=== PATIENT | female | born 1975 | race American Indian/Alaskan Native ===

== ENCOUNTER 2018-11-07 18:59 | Emergency (ER) | payer MEDICAID ==
[2018-11-07] MEDS ORDERED: Famotidine 20 MG/2 ML SDV IVPUSH ONE (19:31)
[2018-11-07] MEDS ORDERED: Sodium Chloride 0.9% 10 ML Syringe FLUSH PRN (19:31)
[2018-11-07] MEDS ORDERED: Ondansetron 4 MG/2 ML SDV IVPUSH ONE (19:31)
[2018-11-07] MEDS ORDERED: HYDROmorphone 0.5 MG/0.5 ML Syringe IVPUSH ONE (19:31)
--- NOTE | 2018-11-07 19:37 | EDM.PDOC ---
ED HPI GENERAL MEDICAL PROBLEM - General Chief Complaint: Abdominal Pain Stated Complaint: ABDOMINAL PAIN Time Seen by Provider: 11/07/18 19:21 Source of Information: Reports: Patient, RN Notes Reviewed - History of Present Illness INITIAL COMMENTS - FREE TEXT/NARRATIVE: 43 year old female with upper mid abd pain since early this past morning, onset about 12 hrs ago. It is burning with radiation to her back. She has had nausea, repetitive vomiting now having dry heaves. Not able to eat or drink much, eating makes her more sick. No chest pain or difficulty breathing. She does still have her appendix and GB. Last menstrual perior about 2 months ago. Left Upper Abdomen Pain Score (Numeric/FACES): 10 Left Middle Back Pain Score (Numeric/FACES): 8 - Related Data Allergies Allergy/AdvReac Type Severity Reaction Status Date / Time No Known Allergies Allergy Verified 11/07/18 19:18 Home Meds: Home Meds Ondansetron [Zofran ODT] 4 mg PO Q8HR PRN #7 tab.dis 11/07/18 [Rx] Past Medical History - Past Surgical History Female Surgical History: Reports: Tubal Ligation Social & Family History - Tobacco Use Smoking Status *Q: Current Every Day Smoker Years of Tobacco use: 15 Packs/Tins Daily: 0.5 - Caffeine Use Caffeine Use: Reports: Coffee, Soda - Recreational Drug Use Recreational Drug Use: No ED ROS GENERAL - Review of Systems Review Of Systems: See Below Constitutional: Denies: Fever, Chills, Diaphoresis HEENT: Reports: No Symptoms Respiratory: Denies: Shortness of Breath, Pleuritic Chest Pain Cardiovascular: Denies: Chest Pain GI/Abdominal: Reports: Abdominal Pain, Decreased Appetite, Nausea, Vomiting. Denies: Diarrhea, Hematemesis, Hematochezia, Melena Musculoskeletal: Reports: Back Pain Skin: Reports: No Symptoms Neurological: Reports: No Symptoms ED EXAM, GI/ABD - Physical Exam Exam: See Below General Appearance: Alert, Moderate Distress Eyes: Bilateral: Normal Appearance Throat/Mouth: Normal Inspection, Normal Oropharynx Head: Atraumatic Neck: Supple, Full Range of Motion Respiratory/Chest: No Respiratory Distress, Lungs Clear, Normal Breath Sounds Cardiovascular: Bradycardia GI/Abdominal Exam: Tender (upper mid abd and to a lesser extent RUQ). No: Guarding, Rebound Back Exam: No: CVA Tenderness (L), CVA Tenderness (R) Neurological: Alert, Oriented, No Motor/Sensory Deficits Skin Exam: Warm, Dry, Normal Color Course - Vital Signs Last Recorded V/S: Last Vital Signs Temp 98.0 F 11/07/18 19:21 Pulse 50 L 11/07/18 19:21 Resp 20 11/07/18 19:21 BP 110/78 11/07/18 19:21 Pulse Ox 99 11/07/18 19:21 - Orders/Labs/Meds Orders: Active Orders 24 hr Category Date Time Status Peripheral IV Care [RC] . DIRECTED Care 11/07/18 19:32 Active Abdomen 2V AP Flat Upright [CR] Stat Exams 11/07/18 20:21 Taken Peripheral IV Insertion Adult [OM.PC] Stat Oth 11/07/18 19:31 Ordered Labs: Laboratory Tests 11/07/18 11/07/18 11/07/18 Range/Units 19:45 19:45 19:45 WBC 7.26 (3.98-10.04) K/mm3 RBC 4.17 (3.98-5.22) M/mm3 Hgb 12.5 (11.2-15.7) gm/L Hct 38.0 (34.1-44.9) % MCV 91.1 (79.4-94.8) fl MCH 30.0 (25.6-32.2) pg MCHC 32.9 (32.2-35.5) g/dl RDW Std Deviation 42.7 (36.4-46.3) fL Plt Count 235 (182-369) K/mm3 MPV 9.7 (9.4-12.3) fl Neut % (Auto) 68.8 (34.0-71.1) % Lymph % (Auto) 21.2 (19.3-51.7) % [place] % (Auto) 8.3 (4.7-12.5) % Eos % (Auto) 1.2 (0.7-5.8) Baso % (Auto) 0.4 (0.1-1.2) % Neut # (Auto) 4.99 (1.56-6.13) K/mm3 Lymph # (Auto) 1.54 (1.18-3.74) K/mm3 [place] # (Auto) 0.60 H (0.24-0.36) K/mm3 Eos # (Auto) 0.09 (0.04-0.36) K/mm3 Baso # (Auto) 0.03 (0.01-0.08) K/mm3 Sodium 141 (136-145) mEq/L Potassium 3.7 (3.5-5.1) mEq/L Chloride 106 (98-107) mEq/L Carbon Dioxide 25 (21-32) mEq/L Anion Gap 13.7 (5-15) BUN 15 (7-18) mg/dL Creatinine 0.6 (0.55-1.02) mg/dL Est Cr Clr Drug Dosing 85.05 mL/min Estimated GFR (MDRD) > 60 (>60) mL/min BUN/Creatinine Ratio 25.0 H (14-18) Glucose 94 (74-106) mg/dL Calcium 8.7 (8.5-10.1) mg/dL Total Bilirubin 0.4 (0.2-1.0) mg/dL AST 15 (15-37) U/L ALT 24 (14-59) U/L Alkaline Phosphatase 76 (46-116) U/L Total Protein 6.8 (6.4-8.2) g/dl Albumin 3.7 (3.4-5.0) g/dl Globulin 3.1 gm/dL Albumin/Globulin Ratio 1.2 (1-2) Lipase 140 (73-393) U/L HCG, Qual Negative (NEGATIVE) Meds: Medications Discontinued Medications Generic Name Dose Route Start Last Admin Trade Name Freq PRN Reason Stop Dose Admin Famotidine 20 mg 11/07/18 19:31 11/07/18 19:55 Pepcid IVPUSH 11/07/18 19:32 20 mg ONETIME ONE Administration Hydromorphone HCl 0.5 mg 11/07/18 19:31 11/07/18 19:55 Dilaudid IVPUSH 11/07/18 19:32 0.5 mg ONETIME ONE Administration Sodium Chloride 1,000 mls @ 999 mls/hr 11/07/18 19:45 11/07/18 19:54 Normal Saline IV 999 mls/hr ONETIME NANCY Administration Metoclopramide HCl 5 mg 11/07/18 20:20 11/07/18 20:41 Reglan IVPUSH 11/07/18 20:21 5 mg ONETIME ONE Administration Ondansetron HCl 4 mg 11/07/18 19:31 11/07/18 19:54 Zofran IVPUSH 11/07/18 19:32 4 mg ONETIME ONE Administration Sodium Chloride 10 ml 11/07/18 19:31 11/07/18 19:55 Saline Flush FLUSH 10 ml ASDIRECTED PRN Administration Keep Vein Open - Re-Assessments/Exams Free Text/Narrative Re-Assessment/Exam: 11/08/18 01:55 Labs came back relatively normal flat and upright of abdomen was okay. She feels much better after IV meds and fluid. Discharge instructions as documented. Departure - Departure Time of Disposition: 21:37 Disposition: Home, Self-Care 01 Condition: Fair Clinical Impression: Abdominal pain Qualifiers: Abdominal location: upper abdomen, unspecified Qualified Code(s): R10.10 - Upper abdominal pain, unspecified Vomiting Qualifiers: Vomiting type: unspecified Vomiting Intractability: non-intractable Nausea presence: with nausea Qualified Code(s): R11.2 - Nausea with vomiting, unspecified - Discharge Information Prescriptions: Ondansetron [Zofran ODT] 4 mg PO Q8HR PRN #7 tab.dis PRN Reason: Nausea/Vomiting Instructions: Abdominal Pain, Adult, [id number], Vomiting, Adult Referrals: PCP,Not In Area [Primary Care Provider] - Forms: ED Department Discharge Additional Instructions: Clear liquids only until tomorrow afternoon, than very careful bland diet as tolerated, Zofran if needed for further nausea or vomiting, start pepcid over- the-counter, the generic is famotidine and take that 20 mg twice daily for the next week, thereafter as needed. That will reduce acid production from your stomach. Follow-up clinic if not getting back to normal within 1-2 days as expected, return to ED as needed if symptoms worsening in any way. - My Orders Last 24 Hours: My Active Orders 11/07/18 19:31 Peripheral IV Insertion Adult [OM.PC] Stat 11/07/18 19:32 Peripheral IV Care [RC] . DIRECTED 11/07/18 20:21 Abdomen 2V AP Flat Upright [CR] Stat - Assessment/Plan Last 24 Hours: My Active Orders 11/07/18 19:31 Peripheral IV Insertion Adult [OM.PC] Stat 11/07/18 19:32 Peripheral IV Care [RC] . DIRECTED 11/07/18 20:21 Abdomen 2V AP Flat Upright [CR] Stat
[2018-11-07] MEDS ORDERED: Sodium Chloride 0.9% 1,000 ML IV SCH (19:45)
[2018-11-07] MEDS ORDERED: Metoclopramide 10 MG/2 ML SDV IVPUSH ONE (20:20)
--- NOTE | 2018-11-08 10:16 | CR ---
Abdomen: Supine and upright views of the abdomen were obtained. Comparison: No prior abdominal x-ray. Bowel gas pattern appears within normal limits. Calcifications are identified within the pelvis which are felt compatible with phleboliths. No free air is seen. Bony structures are unremarkable. Impression: 1. Incidental findings. Nothing acute is appreciated. Diagnostic code #2
== END 2018-11-07 21:51 | disposition home or self-care (01) ==
LOC: JD.ED 18:59
DX: R11.2 Nausea with vomiting, unspecified (principal); R10.10 Upper abdominal pain, unspecified; F17.210 Nicotine dependence, cigarettes, uncomplicated
CPT/HCPCS: 36415; 74019; 80053; 83690; 84703; 85025; 96361; 96374; 96375; 99284; J1170; J2405; J2765; J3490; J7040

== ENCOUNTER 2024-09-28 08:59 | Emergency (ER) | payer MEDICAID ==
[2024-09-28] MEDS: Ondansetron 4 MG/2 ML SDV IVPUSH ONE (10:28)
[2024-09-28] MEDS: Sodium Chloride 0.9% 1,000 ML IV ONE (10:28)
[2024-09-28] MEDS: Ketorolac 30 MG/ML SDV IVPUSH ONE (10:28)
[2024-09-28] MEDS: Acetaminophen 325 MG Tab PO ONE (10:29)
[2024-09-28 10:30] LABS: BASOPHILS PERCENT AUTO 0.4 % (0.0-1.0); EOSINOPHILS PERCENT AUTO 0.2 % (0.0-6.0); HEMATOCRIT 45.5 % (37.0-47.0); HEMOGLOBIN 15.6 gm/dl (12.0-16.0); IMMATURE GRAN ABSOLUTE AUTO 0.04 K/mm3 (0.00-0.05); IMMATURE GRAN PERCENT AUTO 0.4 % (0.0-0.4); LYMPHOCYTES ABSOLUTE AUTO 1.4 K/mm3 (1.0-4.8); LYMPHOCYTES PERCENT AUTO 12.6 % (24.0-44.0); MEAN CORPUSCULAR HEMOGLOBIN 30.6 pg (28.0-32.0); MEAN CORPUSCULAR HGB CONC 34.3 g/dl (32.0-36.0); MEAN CORPUSCULAR VOLUME 89.2 fl (83.0-99.0); MEAN PLATELET VOLUME 9.6 fl (9.4-12.3); MONOCYTES ABSOLUTE AUTO 0.7 K/mm3 (0.0-0.8); MONOCYTES PERCENT AUTO 6.4 % (0.0-8.0); NEUTROPHILS ABSOLUTE AUTO 8.6 K/mm3 (1.8-7.7); PLATELET COUNT,PLT 256 K/mm3 (150-400)
[2024-09-28 10:37] LABS: INR 0.97; PROTHROMBIN TIME 10.3 SECONDS (9.7-12.0)
[2024-09-28] MEDS: Iopamidol 612 MG/ML 100 ML Bottle IVPUSH ONE (10:42)
[2024-09-28 10:46] LABS: ALBUMIN 4.1 g/dl (3.4-5.0); ANION GAP 11.2 (5-15); BILIRUBIN TOTAL 0.8 mg/dL (0.2-1.0); BUN/CREATININE RATIO 11.3 (14-18); CALCIUM 9.5 mg/dL (8.5-10.1); CREATININE 0.8 mg/dL (0.55-1.02); EST CRCL DRUG DOSING (CG) 60.43 mL/min; POTASSIUM,K 4.2 mEq/L (3.5-5.1); PROTEIN TOTAL,TP 8.1 g/dl (6.4-8.2)
[2024-09-28 11:53] LABS: BARBITURATE SCREEN,URINE NEGATIVE (CUTOFF=200); BENZODIAZEPINES SCREEN,URINE NEGATIVE (CUTOFF=150); BUPRENORPHINE SCREEN,URINE NEGATIVE (CUTOFF=10); METHADONE SCREEN, URINE NEGATIVE (CUTOFF=200); METHAMPHETAMINES SCREEN, URINE NEGATIVE (CUTOFF=500); OXYCODONE SCREEN,URINE NEGATIVE (CUT0FF=100); THC SCREEN,URINE 20 NG/ML PRESUMPTIVE POSITIVE (CUTOFF=50)
[2024-09-28 11:54] LABS: AMPHETAMINES SCREEN, URINE NEGATIVE (CUTOFF=500)
[2024-09-28 12:22] LABS: TSH 0.866 uIU/mL (0.358-3.74)
[2024-09-28] MEDS: Sodium Chloride 0.9% 1,000 ML IV SCH (13:47)
[2024-09-28] MEDS: Piperacillin/Tazobactam 4.5 GM in Sodium Chloride 0.9% 100 ML IV ONE (13:47)
== END 2024-09-28 17:15 | disposition home or self-care (01) ==
LOC: JD.ED 08:59 → JD.MS 15:14 → UNDOADMIN 15:14 → JD.MS 16:21 → JD.ED 17:15
DX: K81.9 Cholecystitis, unspecified (principal); R00.1 Bradycardia, unspecified; F17.210 Nicotine dependence, cigarettes, uncomplicated
CPT/HCPCS: 36415; 74177; 76705; 80053; 80306; 82550; 83690; 83735; 84443; 85025; 85610; 93005; 96361; 96365; 96375; 99284; A9270; J1885; J2405; J2543; J7030; Q9967; 93010

== ENCOUNTER 2024-10-06 08:11 | Day surgery (SDC) | payer MEDICAID ==
[~2024-10-06 08:11] MED LIST: Sodium Chloride 0.9% 10 ML Syringe FLUSH PRN; Sodium Chloride 0.9% 10 ML Syringe FLUSH SCH
[2024-10-06] MEDS: Lactated Ringers 1,000 ML IV SCH (08:35)
[2024-10-06 09:24] LABS: ALBUMIN 3.5 g/dl (3.4-5.0); ANION GAP 15.1 (5-15); BILIRUBIN TOTAL 0.3 mg/dL (0.2-1.0); BUN/CREATININE RATIO 17.8 (14-18); CALCIUM 8.7 mg/dL (8.5-10.1); CREATININE 0.9 mg/dL (0.55-1.02); EST CRCL DRUG DOSING (CG) 53.71 mL/min; POTASSIUM,K 4.1 mEq/L (3.5-5.1)
[2024-10-06] MEDS ORDERED: propofoL 1,000 MG/100 ML 100 ML ONE (09:28)
[2024-10-06] MEDS ORDERED: fentaNYL 250 MCG/5 ML SDV ONE (09:32)
[2024-10-06] MEDS ORDERED: Midazolam 1 MG/ML 2 ML SDV ONE (09:32)
[2024-10-06] MEDS ORDERED: Ondansetron 4 MG/2 ML SDV ONE (09:33)
[2024-10-06] MEDS ORDERED: Dexamethasone 4 MG/ML 5 ML MDV ONE (09:33)
[2024-10-06] MEDS ORDERED: Lidocaine 1% 5 ML VIAL ONE (09:33)
[2024-10-06] MEDS ORDERED: Rocuronium 50 MG/5 ML Vial ONE (09:33)
[2024-10-06] MEDS ORDERED: ceFAZolin 2 GM Vial ONE (09:52)
[2024-10-06] MEDS ORDERED: Acetaminophen 325 MG Tab PO ONE (10:00)
[2024-10-06] MEDS ORDERED: Lactated Ringers 1,000 ML ONE (10:04)
[2024-10-06] MEDS ORDERED: HYDROmorphone 0.5 MG/0.5 ML Syringe IVPUSH PRN (10:13)
[2024-10-06] MEDS ORDERED: Acetaminophen Soln 650 MG/20.3 ML UD Cup PO ONE (10:13)
[2024-10-06] MEDS ORDERED: HYDROmorphone 0.5 MG/0.5 ML Syringe ONE (10:20)
[2024-10-06] MEDS ORDERED: propofoL 500 MG/50 ML 50 ML ONE (10:44)
[2024-10-06] MEDS ORDERED: Ketorolac 30 MG/ML SDV ONE (10:57)
[2024-10-06] MEDS ORDERED: Sugammadex Sodium 200 MG/2 ML VIAL IV ONE (10:57)
[2024-10-06] MEDS: EPINEPHrine 1 MG/ML SDV ONE (11:05)
[2024-10-06] MEDS: Bupivacaine 0.5% 30 ML SDV ONE (11:05)
[2024-10-06] MEDS: fentaNYL 100 MCG/2 ML SDV IVPUSH PRN (11:57)
[2024-10-06] MEDS: oxyCODONE 5 MG Tab PO PRN (12:52)
[2024-10-06] MEDS: Ondansetron 4 MG/2 ML SDV IVPUSH PRN (13:56)
== END 2024-10-06 14:30 | disposition home or self-care (01) ==
LOC: JD.SDS 08:11
PROVIDERS: ATTEND Surgery
DX: K80.10 Calculus of gallbladder with chronic cholecystitis without obstruction (principal); F17.210 Nicotine dependence, cigarettes, uncomplicated; Z79.899 Other long term (current) drug therapy
CPT/HCPCS: 00790; 36415; 80053; A9270-GY; J0171; J0665; J0690; J1100; J1885; J2003; J2250; J2405; J2704; J3010; J3490; J7120